=== PATIENT | male | born 1995 | race Caucasian/White ===

== ENCOUNTER 2020-04-11 20:48 | Emergency (ER) | payer MEDICAID ==
[~2020-04-11] VITALS: Ht 188 cm; Wt 82.0 kg
--- NOTE | 2020-04-11 21:00 | NUR ---
BIB [facility] FROM HOME. PT WITNESSED SEIZURE ACTIVITY. NO HX OF SZ. [facility] STATES PT POST ICTAL ON ARRIVAL, NOW A&OX4 GCS 15. 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 PT GF HEARD "THUD" IN OTHER ROOM, PT FOUND ON FLOOR WITH SEIZURE ACTIVITY. PT DENIES PAIN FROM FALL. PT CONNECTED TO MONITORING. EKG COMPLETE. SEIZURE PRECAUTIONS IN PLACE. CALL LIGHT IN REACH. AWAITING ORDERS.
[2020-04-11] MEDS ORDERED: SODIUM CHLORIDE 0.9% 1,000ML IVBOLUS ONE (21:30)
[2020-04-11] MEDS ORDERED: SODIUM CHLORIDE FLUSH 10ML SYR IVF ONE (21:30)
[2020-04-11 21:42] LABS: AMPHETAMINE SCREEN, URINE Negative (Negative); BARBITURATE SCREEN, URINE Negative (Negative); BENZODIAZEPINE SCREEN, URINE Negative (Negative); CANNABINOID SCREEN, URINE Negative (Negative); COCAINE SCREEN, URINE Negative (Negative); METHADONE SCREEN, URINE Negative (Negative); OPIATE SCREEN, URINE Negative (Negative)
[2020-04-11 21:56] LABS: BASOPHILS % (AUTO) 0 % (0-1); EOSINOPHILS % (AUTO) 0 % (1-7); LYMPHOCYTES % (AUTO) 36 % (22-44); MEAN CORPUSCULAR HEMOGLOBIN 29.2 pg (27.5-34.5); MEAN CORPUSCULAR HGB CONC 34.7 g/dL (33.2-36.2); MONOCYTES % (AUTO) 8 % (2-9); NEUTROPHILS % (AUTO) 56 % (42-75); PLATELET COUNT 217 x10^3/uL (130-400); RED BLOOD COUNT 4.57 x10^6/uL (4.38-5.82); RED CELL DISTRIBUTION WIDTH 12.8 % (9.4-14.8)
[2020-04-11 21:57] LABS: MD NO
[2020-04-11] MEDS ORDERED: PROMETHAZINE 25 MG/ML, 1ML IM ONE (22:00)
[2020-04-11 22:04] LABS: ANION GAP 2 mmol/L (5-15); CALCIUM 8.4 mg/dL (8.5-10.1); CHLORIDE 104 mmol/L (98-107)
[2020-04-11 22:07] LABS: ALANINE AMINOTRANSFERASE 25 U/L (12-78); ALKALINE PHOSPHATASE 54 U/L (45-117); BILIRUBIN,TOTAL 0.6 mg/dL (0.2-1.0); CREATININE 1.21 mg/dL (0.7-1.3); TOTAL PROTEIN 6.7 g/dL (6.4-8.2)
[2020-04-11] MEDS ORDERED: PROMETHAZINE 25 MG/ML, 1ML ONE (22:09)
--- NOTE | 2020-04-11 22:15 | NUR ---
PT C/O NAUSEA. N/O RECEIVED. 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 PT RESTING COMFORTABLY ON GURNEY. NO SEIZURE ACTIVITY. GF AT BEDSIDE.
--- NOTE | 2020-04-11 22:16 | NUR ---
ALL RESULTS ARE BACK AT THIS TIME. CHART UP FOR RECHECK.
[2020-04-11 22:49] VITALS: BP 113/65
== END 2020-04-11 22:57 | disposition home or self-care (01) ==
LOC: ED 22:49
DX: R56.9 Unspecified convulsions (principal); R94.31 Abnormal electrocardiogram [ECG] [EKG]
CPT/HCPCS: 36415; 70450; 80053; 80307; 80320; 85025; 93005; 96360; 96372; 99285; J2550; J7030; G0480